=== PATIENT | female | born 1960 | race Caucasian/White ===

== ENCOUNTER → 2016-09-14 | Outpatient (CLI) | payer OTHER ==
[~2016-09-14] MED LIST: DILA2TAB2 PO; ESCI10TA PO; ESCI20TA PO; FAMC500T PO; MULT-120 PO; PANT40TA3 PO; SOMA350T PO; TRAZ100T4 PO
--- NOTE | 2016-09-14 10:47 | RADRPT ---
EXAM DATE/TIME: 09/14/2016 10:39 [facility] COMPARISON: CHEST PA & LAT, May 14, 2015, 11:52. INDICATIONS : Evaluate pneumonia, pneumothorax, or communicable disease. Pre op toe amputation. MEDICAL HISTORY : None. SURGICAL HISTORY : None. ENCOUNTER: Initial ACUITY: 1 day PAIN SCORE: 0/10 LOCATION: Bilateral chest FINDINGS: PA and lateral views of the chest demonstrate the lungs to be symmetrically aerated without evidence of mass, infiltrate or effusion. The cardiomediastinal contours are unremarkable. Osseous structure s are intact. CONCLUSION: Normal examination. Gene Brian MD on September 14, 2016 at 10:46 Board Certified Radiologist. This report was verified electronically.
[2016-09-14 10:51] LABS: BASOPHIL # 0.1 TH/MM3 (0-0.2); BASOPHIL % 1.1 % (0.0-2.0); EOSINOPHIL # 0.6 TH/MM3 (0-0.4); EOSINOPHIL % 9.2 % (0.0-4.0); HEMATOCRIT 32.7 % (35.0-46.0); HEMO FLAGS DIFF FINAL; LYMPH % 30.7 % (9.0-44.0); MEAN CELL VOLUME 94.9 FL (80.0-100.0); MEAN CORPUSCULAR HEMOGLOBIN 30.3 PG (27.0-34.0); MONO % 13.4 % (0.0-8.0); NEUT % 45.6 % (16.0-70.0); PLATELET COUNT 238 TH/MM3 (150-450); RED BLOOD COUNT 3.45 MIL/MM3 (4.00-5.30); RED CELL DISTRIBUTION WIDTH 14.4 % (11.6-17.2); WHITE BLOOD COUNT 6.5 TH/MM3 (4.0-11.0)
[2016-09-14 11:00] LABS: INTERNATIONAL NORMALIZED RATIO 0.9 RATIO; PROTHROMBIN TIME - PATIENT 9.8 SEC (9.8-11.6)
[2016-09-14 11:14] LABS: ALKALINE PHOSPHATASE 56 U/L (45-117); ALT (GPT) 23 U/L (10-53); ANION GAP 6 MEQ/L (5-15); AST (GOT) 19 U/L (15-37); BICARBONATE 31.3 MEQ/L (21.0-32.0); BLOOD UREA NITROGEN 16 MG/DL (7-18); CHLORIDE 103 MEQ/L (98-107); GLOMERULAR FILTRATION RATE 72 ML/MIN (>89); GLUCOSE,FASTING 149 MG/DL (74-99); POTASSIUM 4.7 MEQ/L (3.5-5.1); SODIUM (NA) 140 MEQ/L (136-145); TOTAL BILIRUBIN ADULT 0.2 MG/DL (0.2-1.0)
--- NOTE | 2016-09-14 14:12 | EKG ---
Date Performed: 09/14/2016 Time Performed: 10:13:00 PTAGE: 56 years EKG: Normal Sinus rhythm Since the prior tracing, the marked sinus bradycardia has resolved. BORDERLINE ECG PREVIOUS TRACING : 09/30/2015 11.53 DOCTOR: Angelique Tavera Interpretating Date/Time 09/14/2016 14:11:13
== END ==
LOC: CPRE 09:52
PROVIDERS: ATTEND Podiatrist Primary Podiatric Medicine
DX: Z01.810 Encounter for preprocedural cardiovascular examination (principal); Z01.811 Encounter for preprocedural respiratory examination; Z01.812 Encounter for preprocedural laboratory examination; M20.41 Other hammer toe(s) (acquired), right foot; R94.31 Abnormal electrocardiogram [ECG] [EKG]
CPT/HCPCS: 36415; 71020; 80053; 85025; 85610; 93005

== ENCOUNTER → 2016-09-18 | Day surgery (SDC) | payer OTHER ==
[~2016-09-18] VITALS: Ht 172.7 cm; Wt 74.4 kg
[~2016-09-18] MED LIST changes: +*HYDROmorphone PF 1 MG VIAL PERIprocedural Use ONLY ONE; +BUPIVACAINE HCL PF 0.5% 30 ML VIAL INFIL ONE; +BUPIVACAINE HCL PF 0.5% 30 ML VIAL ONE; +CHLORHEXIDINE GLUCONATE 2 % 1 PACK (2 CLOTHS) TOPICAL PRN; +DEXAMETHASONE SOD PHOS 4 MG/ML VIAL ONE; +DO NOT ADM ANY ANTICOAGULANT DRUGS PRN; -ESCI10TA PO; +FAMOTIDINE 20 MG/2 ML VIAL ONE; +HYDROmorphone HCL 2 MG TAB PO PRN; +HYDROmorphone HCL PF 1 MG/ML VIAL IV ONE; +INSULIN HUMAN REGULAR 1,000 UNITS/10 ML VIAL SQ PRN; +KETOROLAC TROMETHAMINE 60 MG/2 ML (IM) VIAL IM ONE; +LACTATED RINGER'S 1000 ML IV PRN; +LIDOCAINE HCL 1% 30 ML VIAL INFIL ONE; +METOPROLOL TARTRATE 25 MG TAB PO PRN; +MIDAZOLAM HCL 2 MG/2 ML VIAL ONE; +NALOXONE HCL 0.4 MG/ML AMP IV PRN; +ONDANSETRON HCL 4 MG/2 ML VIAL IV PUSH ONE; +POVIDONE IODINE 5% (ANTISEPSIS KIT) 4 APPLICATIONS EACH NARE PRN; +PROPOFOL 200 MG/20 ML AMP IV ONE; +Post-op Orders (for Pharmacy) MISC XX ONE; +SODIUM CHLORID 0.9% 500 ML IV PRN; +SODIUM CHLORIDE 0.9% FLUSH 10 ML FLUSH IV FLUSH PRN; +SODIUM CHLORIDE 0.9% FLUSH 10 ML FLUSH IV FLUSH SCH; +VANCOMYCIN HCL 1000 MG ON-CALL/NS 250 ML IV SCH
[2016-09-18 07:36] VITALS: BP 131/83; PULSE 68; RESP 18; TEMP 98.5; O2SAT 97
--- NOTE | 2016-09-18 09:55 | PD.OP ---
Operative Report Date of Surgery: Sep 18, 2016 Preoperative Diagnosis: (1) Hammertoe Second toe right foot Postoperative Diagnosis: (1) Hammertoe Second toe right foot Procedure: Amputation of the second toe right foot at the [facility] Anesthesia: General anesthesia Surgeon: Nestor Smith DPM Senior Bioinformatics Scientist(s): None Operation and Findings: Patient is brought to the operating room placed on the operating table in a supine position. A pneumatic ankle cuff was placed around the patient's right ankle after adequate web roll padding. She was given general inhalation anesthesia. The right foot was prepped and draped in the usual sterile manner. The right foot was elevated above the operating table for a period 3 minutes. After the appropriate timeout was performed the pneumatic ankle cuff was inflated to 250 mmHg. The right foot was lowered to the operating table and attention was directed to the second toe the right foot. Should be noted that the patient has severe hammertoe deformity secondary to hallux abductovalgus. Patient's bunion was not painful and she wished amputation of the second toe in lieu of multiple surgical corrective procedures. At this time a fishmouth incision was made at the base of the second toe from dorsally to plantarly. The incision was deepened using sharp and blunt dissection. The incision was deepened to the level of the metatarsal phalangeal joint where the second toe was disarticulated. There is flushed with copious amounts of sterile saline. Subcutaneous tissue was closed with 3-0 Vicryl. Skin edges were closed with 4- 0 Prolene. Sponge and instrument counts were correct. The incision was dressed with Adaptic, 4 x 4's and Anthony. The pneumatic ankle cuff was deflated at the 21 minute jereym. Vascular status returned to the remaining digits of the right foot. Estimated blood loss was less than 10 cc. Second toe was sent to pathology. Patient tolerated procedures and anesthesia well and left the OR to PACU in apparent satisfactory condition with all vital signs stable Nestor Smith DPM Sep 18, 2016 09:55
[2016-09-18 11:15] VITALS: BP 119/70; PULSE 74; RESP 18; TEMP 97.5; O2SAT 96
== END | disposition home or self-care (01) ==
LOC: HSDC 06:58
PROVIDERS: ATTEND Podiatrist Primary Podiatric Medicine
DX: M20.41 Other hammer toe(s) (acquired), right foot (principal)
CPT/HCPCS: 01480; 28820; 88305; 88311; J1100; J1170; J1885; J2250; J2405; J3010; J3370; J7050; J7120; L3260

== ENCOUNTER → 2016-12-14 | Outpatient (CLI) | payer OTHER ==
[~2016-12-14] MED LIST changes: -*HYDROmorphone PF 1 MG VIAL PERIprocedural Use ONLY ONE; -BUPIVACAINE HCL PF 0.5% 30 ML VIAL INFIL ONE; -BUPIVACAINE HCL PF 0.5% 30 ML VIAL ONE; -CHLORHEXIDINE GLUCONATE 2 % 1 PACK (2 CLOTHS) TOPICAL PRN; -DEXAMETHASONE SOD PHOS 4 MG/ML VIAL ONE; -DO NOT ADM ANY ANTICOAGULANT DRUGS PRN; -FAMOTIDINE 20 MG/2 ML VIAL ONE; -HYDROmorphone HCL 2 MG TAB PO PRN; -HYDROmorphone HCL PF 1 MG/ML VIAL IV ONE; -INSULIN HUMAN REGULAR 1,000 UNITS/10 ML VIAL SQ PRN; -KETOROLAC TROMETHAMINE 60 MG/2 ML (IM) VIAL IM ONE; -LACTATED RINGER'S 1000 ML IV PRN; -LIDOCAINE HCL 1% 30 ML VIAL INFIL ONE; -METOPROLOL TARTRATE 25 MG TAB PO PRN; -MIDAZOLAM HCL 2 MG/2 ML VIAL ONE; +MULT-65 PO; -NALOXONE HCL 0.4 MG/ML AMP IV PRN; -ONDANSETRON HCL 4 MG/2 ML VIAL IV PUSH ONE; -POVIDONE IODINE 5% (ANTISEPSIS KIT) 4 APPLICATIONS EACH NARE PRN; -PROPOFOL 200 MG/20 ML AMP IV ONE; -Post-op Orders (for Pharmacy) MISC XX ONE; -SODIUM CHLORID 0.9% 500 ML IV PRN; -SODIUM CHLORIDE 0.9% FLUSH 10 ML FLUSH IV FLUSH PRN; -SODIUM CHLORIDE 0.9% FLUSH 10 ML FLUSH IV FLUSH SCH; +TRAM50TA PO; +TRAZ100T6 PO; -VANCOMYCIN HCL 1000 MG ON-CALL/NS 250 ML IV SCH
[2016-12-14 11:22] LABS: HEMATOCRIT 36.6 % (35.0-46.0); MEAN CELL VOLUME 93.5 FL (80.0-100.0); MEAN CORPUSCULAR HEMOGLOBIN 30.7 PG (27.0-34.0); MEAN CORPUSCULAR HGB CONC 32.8 % (32.0-36.0); PLATELET COUNT 232 TH/MM3 (150-450); RED BLOOD COUNT 3.91 MIL/MM3 (4.00-5.30); RED CELL DISTRIBUTION WIDTH 13.8 % (11.6-17.2); REVIEW FLAG FINAL; WHITE BLOOD COUNT 7.2 TH/MM3 (4.0-11.0)
[2016-12-14 11:28] LABS: INTERNATIONAL NORMALIZED RATIO 0.9 RATIO; PROTHROMBIN TIME - PATIENT 9.9 SEC (9.8-11.6)
[2016-12-14 11:41] LABS: ANION GAP 7 MEQ/L (5-15); AST (GOT) 20 U/L (15-37); BICARBONATE 29.1 MEQ/L (21.0-32.0); BLOOD UREA NITROGEN 13 MG/DL (7-18); CHLORIDE 103 MEQ/L (98-107); GLOMERULAR FILTRATION RATE 75 ML/MIN (>89); GLUCOSE,FASTING 143 MG/DL (74-99); POTASSIUM 4.1 MEQ/L (3.5-5.1); SODIUM (NA) 139 MEQ/L (136-145)
[2016-12-14 11:43] LABS: ALT (GPT) 21 U/L (10-53)
[2016-12-14 11:44] LABS: ALKALINE PHOSPHATASE 65 U/L (45-117); TOTAL BILIRUBIN ADULT 0.3 MG/DL (0.2-1.0)
--- NOTE | 2016-12-14 12:25 | RADRPT ---
EXAM DATE/TIME: 12/14/2016 11:29 [facility] COMPARISON: CHEST PA & LAT, September 14, 2016, 10:39. INDICATIONS : Evaluate for pneumonia, pneumothorax, and communicable disease. Pre-op for left foot surgery. MEDICAL HISTORY : None. SURGICAL HISTORY : None. ENCOUNTER: Initial ACUITY: 1 day PAIN SCORE: 0/10 LOCATION: chest FINDINGS: The cardiac and mediastinal contours are within normal limits. The lungs demonstrate some mild chroni c interstitial changes but are clear. There is rotatory scoliosis of the thoracic spine. CONCLUSION: 1. No acute cardiopulmonary findings identified. 2. Stable compared to prior dated 09/14/16. Scar Delong MD on December 14, 2016 at 12:23 Board Certified Radiologist. This report was verified electronically.
== END ==
LOC: CPRE 10:41
PROVIDERS: ATTEND Podiatrist Primary Podiatric Medicine
DX: Z01.811 Encounter for preprocedural respiratory examination (principal); Z01.812 Encounter for preprocedural laboratory examination; M20.42 Other hammer toe(s) (acquired), left foot
CPT/HCPCS: 36415; 71020; 80053; 85027; 85610

== ENCOUNTER → 2016-12-18 | Day surgery (SDC) | payer OTHER ==
[~2016-12-18] VITALS: Ht 172.7 cm; Wt 73.8 kg
[~2016-12-18] MED LIST changes: +*HYDROmorphone PF 1 MG VIAL PERIprocedural Use ONLY ONE; +ACETAMINOPHEN 1000 MG/100 ML VIAL IV ONE; +BUPIVACAINE HCL PF 0.5% 30 ML VIAL ONE; +CHLORHEXIDINE GLUCONATE 2 % 1 PACK (2 CLOTHS) TOPICAL PRN; +DEXAMETHASONE SOD PHOS 4 MG/ML VIAL ONE; +DICLOFENAC SODIUM 37.5 MG/ML VIAL IV PUSH ONE; +DO NOT ADM ANY ANTICOAGULANT DRUGS PRN; +FAMOTIDINE 20 MG/2 ML VIAL ONE; +HYDROmorphone HCL PF 1 MG/ML VIAL IV PRN; +IBUPROFEN 400 MG TAB PO PRN; +INSULIN HUMAN REGULAR 1,000 UNITS/10 ML VIAL SQ PRN; +LACTATED RINGER'S 1000 ML IV PRN; +METOPROLOL TARTRATE 25 MG TAB PO PRN; +MIDAZOLAM HCL 2 MG/2 ML VIAL ONE; -MULT-120 PO; +NALOXONE HCL 0.4 MG/ML AMP IV PRN; +ONDANSETRON HCL 4 MG/2 ML VIAL IV PUSH ONE; +PHENYLEPH/NS 1000 MCG/10 ML SYR IV ONE; +POVIDONE IODINE 5% (ANTISEPSIS KIT) 4 APPLICATIONS EACH NARE PRN; +PROPOFOL 200 MG/20 ML AMP IV ONE; +Post-op Orders (for Pharmacy) MISC XX ONE; +SODIUM CHLORID 0.9% 500 ML IV PRN; +SODIUM CHLORIDE 0.9% FLUSH 10 ML FLUSH IV FLUSH PRN; +SODIUM CHLORIDE 0.9% FLUSH 10 ML FLUSH IV FLUSH SCH; -SOMA350T PO; -TRAZ100T4 PO; +VANCOMYCIN 1 GM IV ONE; +VANCOMYCIN HCL 1000 MG ON-CALL/NS 250 ML IV SCH; +ePHEDrine/NS 25 MG/5 ML SYR IV ONE; +traMADol HCL 50 MG TAB PO PRN
[2016-12-18 09:27] VITALS: BP 105/71; PULSE 71; RESP 20; TEMP 98.3; O2SAT 97
--- NOTE | 2016-12-18 09:44 | PD.OP ---
Operative Report Date of Surgery: Dec 18, 2016 Preoperative Diagnosis: (1) Hammertoe Fifth toe left foot Postoperative Diagnosis: (1) Hammertoe Fifth toe left foot Procedure: Derotational arthroplasty fifth toe left foot Anesthesia: General inhalation Surgeon: Nestor Smith DPM Motor Inspection Mechanic(s): None Operation and Findings: Patient is brought to the operating room placed on the operating table in the supine position. Patient was given general inhalation anesthesia and the left foot was prepped and draped in the usual sterile manner. After the appropriate timeout was performed attention was directed to the fifth toe of the left foot. He was noted that the fifth toe is varus rotated and is sitting under the fourth toe. At this time using a 15 blade a teardrop type incision was centered over the proximal interphalangeal joint removing a small wedge of skin. Incision was deepened using sharp and blunt dissection and the head of the proximal phalanx was delivered into the wound. Utilizing a bone cutting forceps the head of the proximal phalanx was resected. The incision site was closed and he should be noted that the fifth toe is now the rotated and is no longer sitting under the fourth toe. The area was flushed with copious amounts of sterile saline. Skin edges were reapproximated and closed using 4-0 Prolene. Excellent anatomical alignment of the fifth toe was noted. The toe was anesthetized with 7 cc of 0.5% Marcaine plain. The incision was dressed with Adaptic 4 x 4's and Anthony and an Tank bandage. Estimated blood loss was less than 10 cc. No pathology specimen was sent. Sponge and instrument count were noted to be correct. Patient tolerated the procedures and anesthesia well and left the OR to PACU in apparent satisfactory condition with all vital signs stable endovascular status intact to all digits of the left foot. Nestor Smith DPM Dec 18, 2016 09:44
--- NOTE | 2016-12-18 11:27 | PD.OP ---
Operative Report Date of Surgery: Dec 18, 2016 Preoperative Diagnosis: (1) Hammertoe Second and third toes left foot Postoperative Diagnosis: (1) Hammertoe Second and third toes left foot Procedure: Arthrodesis second and third toes left foot Anesthesia: Gen. anesthesia Surgeon: Nestor Smith DPM Director Of [facility](s): NIVIA Operation and Findings: Patient is brought to the OR and placed on the operating table in a supine position. Pneumatic ankle cuff was placed around the patient's left ankle after adequate web roll padding. Patient was given general relation anesthesia. The left foot was prepped and draped in the usual sterile manner. After the appropriate timeout was performed the left foot was elevated above the operating table for a period of 3 minutes at which time the pneumatic ankle cuff was inflated to 250 mmHg. Total cuff time was 52 minutes. The left foot was lowered to the operating table and reduction of the patient has hammertoe deformity of the second and third toes of the left foot. At this time attention was directed to the second toe where linear incision was made centered over the proximal interphalangeal joint. Incision was deepened using sharp and blunt dissection to the level of the proximal interphalangeal joint. Transverse tenotomy was performed. The head of the proximal phalanx and the base of the intermediate phalanx was resected. Should be noted that when the toe is dorsiflexed and now set a more correct anatomical position. At this time a 0.45 K wire was driven from the intermediate phalanx distally through the end of the toe and retrograded into the proximal phalanx to hold this toe in a straight position. The K wire was cut and capped. Subcutaneous tissue is closed with 3-0 Vicryl and skin was reapproximated and closed with 4-0 Prolene. She really of the toe now sat in a more correct anatomical position. Attention was directed to the third toe of the left foot where the exact same procedures performed on the second toe was performed on the third toe at the same good results obtained. At this time both toes were anesthetized using a total of 10 cc of 0.5% Marcaine plain. Incisions were dressed with Adaptic 4 x 4's and Anthony and the pneumatic ankle cuff was deflated. The vascular status returned to the digits. Blood loss was less than 10 cc. No specimen was sent. I will sponge and instrument count was noted to be correct. Patient tolerated procedures and anesthesia well and left the OR to PACU in apparent satisfactory condition without blood or signs stable endovascular status intact to the left foot. Nestor Smith DPM Dec 18, 2016 11:26
--- NOTE | 2016-12-18 12:48 | RADRPT ---
EXAM DATE/TIME: 12/18/2016 11:53 [facility] COMPARISON: FOOT LEFT COMPLETE ([id number]), May 17, 2015, 14:29. INDICATIONS : Post hammer toe repair, pins, left foot. MEDICAL HISTORY : Rheumatoid arthritis. SURGICAL HISTORY : 3 prior hammer toe repairs. ENCOUNTER: Initial ACUITY: 1 day PAIN SCORE: 8/10 LOCATION: Left foot. FINDINGS: Surgical pin traverses the second phalanx and the proximal phalanx of the second digit has resorbed s minerva the prior examination and the surgical pin lies in the soft tissues between the first and second digits proximally. There is a surgical pin traversing the third distal phalanx with gross anatomical alignment and screws involving the first metatarsal bone have not changed. Post surgical changes inv olving the first metatarsophalangeal joint is seen with superimposed degenerative change. CONCLUSION: Resorption of second proximal phalanx since the prior examination and migration of the proximal porti on of the second surgical pin which lies between the first and second digit interdigital soft tissue. Christen Corea MD on December 18, 2016 at 12:43 Board Certified Radiologist. This report was verified electronically.
[2016-12-18 12:50] VITALS: BP 132/84; PULSE 81; RESP 18; TEMP 97; O2SAT 95
== END | disposition home or self-care (01) ==
LOC: HSDC 08:52
PROVIDERS: ATTEND Podiatrist Primary Podiatric Medicine
DX: M20.42 Other hammer toe(s) (acquired), left foot (principal); M06.9 Rheumatoid arthritis, unspecified
CPT/HCPCS: 01480; 28285; 73630; 76000; J0131; J1100; J1130; J1170; J2250; J2370; J2405; J3010; J3370; J7050; L3260

== ENCOUNTER → 2017-03-30 | Outpatient (CLI) | payer OTHER ==
[~2017-03-30] MED LIST changes: -*HYDROmorphone PF 1 MG VIAL PERIprocedural Use ONLY ONE; -ACETAMINOPHEN 1000 MG/100 ML VIAL IV ONE; +ASPI1TAB56 PO; -BUPIVACAINE HCL PF 0.5% 30 ML VIAL ONE; +CELE50CA PO; -CHLORHEXIDINE GLUCONATE 2 % 1 PACK (2 CLOTHS) TOPICAL PRN; -DEXAMETHASONE SOD PHOS 4 MG/ML VIAL ONE; -DICLOFENAC SODIUM 37.5 MG/ML VIAL IV PUSH ONE; -DILA2TAB2 PO; -DO NOT ADM ANY ANTICOAGULANT DRUGS PRN; +DOCU1CAP39 PO; -FAMOTIDINE 20 MG/2 ML VIAL ONE; +FERR325T20 PO; -HYDROmorphone HCL PF 1 MG/ML VIAL IV PRN; -IBUPROFEN 400 MG TAB PO PRN; -INSULIN HUMAN REGULAR 1,000 UNITS/10 ML VIAL SQ PRN; -LACTATED RINGER'S 1000 ML IV PRN; -METOPROLOL TARTRATE 25 MG TAB PO PRN; -MIDAZOLAM HCL 2 MG/2 ML VIAL ONE; -NALOXONE HCL 0.4 MG/ML AMP IV PRN; -ONDANSETRON HCL 4 MG/2 ML VIAL IV PUSH ONE; +OXYC1TAB63 PO; -PHENYLEPH/NS 1000 MCG/10 ML SYR IV ONE; -POVIDONE IODINE 5% (ANTISEPSIS KIT) 4 APPLICATIONS EACH NARE PRN; -PROPOFOL 200 MG/20 ML AMP IV ONE; -Post-op Orders (for Pharmacy) MISC XX ONE; -SODIUM CHLORID 0.9% 500 ML IV PRN; -SODIUM CHLORIDE 0.9% FLUSH 10 ML FLUSH IV FLUSH PRN; -SODIUM CHLORIDE 0.9% FLUSH 10 ML FLUSH IV FLUSH SCH; -TRAM50TA PO; +TRAZ100T10 PO; -TRAZ100T6 PO; -VANCOMYCIN 1 GM IV ONE; -VANCOMYCIN HCL 1000 MG ON-CALL/NS 250 ML IV SCH; +VENTAER INH; -ePHEDrine/NS 25 MG/5 ML SYR IV ONE; -traMADol HCL 50 MG TAB PO PRN
[2017-03-30 09:12] LABS: APTT (PATIENT) 23.7 SEC (24.3-30.1); INTERNATIONAL NORMALIZED RATIO 0.9 RATIO
[2017-03-30 10:15] LABS: POTASSIUM 4.5 MEQ/L (3.5-5.1)
== END ==
LOC: CPRE 08:12
PROVIDERS: ATTEND Orthopaedic Surgery
DX: Z01.812 Encounter for preprocedural laboratory examination (principal)
CPT/HCPCS: 36415; 80048; 85610; 85730

== ENCOUNTER 2017-04-05 08:01 | Inpatient (IN) | payer OTHER ==
[~2017-04-05] VITALS: Ht 174 cm; Wt 78.1 kg
[~2017-04-05 08:01] MED LIST changes: -ASPI1TAB56 PO; -DOCU1CAP39 PO; -FERR325T20 PO; -OXYC1TAB63 PO; -TRAZ100T10 PO; +TRAZ100T6 PO
[2017-04-05] MEDS ORDERED: INSULIN HUMAN REGULAR 1,000 UNITS/10 ML VIAL SQ PRN (09:00)
[2017-04-05] MEDS ORDERED: CHLORHEXIDINE GLUCONATE 2 % 1 PACK (2 CLOTHS) TOPICAL PRN (09:00)
[2017-04-05] MEDS ORDERED: POVIDONE IODINE 5% (ANTISEPSIS KIT) 4 APPLICATIONS EACH NARE PRN (09:00)
[2017-04-05] MEDS ORDERED: SODIUM CHLORID 0.9% 500 ML IV PRN (09:00)
[2017-04-05] MEDS ORDERED: METOPROLOL TARTRATE 25 MG TAB PO PRN (09:00)
[2017-04-05] MEDS ORDERED: LACTATED RINGER'S 1000 ML IV PRN (09:00)
[2017-04-05] MEDS ORDERED: GENTAMICIN SULFATE 80 MG/2 ML VIAL ONE (09:05)
[2017-04-05] MEDS ORDERED: Post-op Orders (for Pharmacy) MISC XX ONE (09:30)
[2017-04-05] MEDS ORDERED: ALBUTEROL SULFATE 90 MCG/ACT HFA 8 GM INHALER INH PRN (09:30)
[2017-04-05] MEDS ORDERED: SODIUM CHLORIDE 0.9% FLUSH 5 ML FLUSH IVF PRN (09:30)
[2017-04-05] MEDS ORDERED: TRANEXAMIC ACID INJ 0 MG in SODIUM CHLORIDE 0.9% INJ 100 ML IV SCH (09:30)
[2017-04-05] MEDS ORDERED: FAMOTIDINE 20 MG/2 ML VIAL ONE (09:42)
[2017-04-05] MEDS ORDERED: ACETAMINOPHEN 1000 MG/100 ML 100 ML IV ONE (09:43)
[2017-04-05] MEDS ORDERED: traMADol HCL 50 MG TAB PO PRN (09:45)
[2017-04-05] MEDS ORDERED: ZOLPIDEM TARTRATE 5 MG TAB PO PRN (10:00)
[2017-04-05] MEDS ORDERED: CLINDAMYCIN PHOS 600 MG/4 ML VIAL ONE (10:07)
[2017-04-05] MEDS ORDERED: CLINDAMYCIN PHOS 900 MG/6 ML VIAL ONE (10:10)
[2017-04-05] MEDS ORDERED: BUPIVACAINE HCL PF 0.5% 30 ML VIAL ONE (10:15)
[2017-04-05] MEDS ORDERED: CHLORHEXIDINE GLUCONATE 4% SOLN 120 ML BTL TOPICAL SCH (10:30)
[2017-04-05] MEDS ORDERED: TRANEXAMIC ACID INJ 781 MG in SODIUM CHLORIDE 0.9% INJ 100 ML IV SCH ×2 (10:30→13:30)
[2017-04-05] MEDS ORDERED: MAGNESIUM HYDROXIDE SUSP 30 ML CUP PO PRN (10:30)
[2017-04-05] MEDS ORDERED: EXPAREL PERI-ARTICULAR INJECTION (TOTAL VOL. 100 ML) P-ARTICULR SCH ×2 (10:30)
[2017-04-05] MEDS ORDERED: PROPOFOL 200 MG/20 ML AMP ONE (10:33)
[2017-04-05] MEDS ORDERED: ONDANSETRON HCL 4 MG/2 ML VIAL IVP PRN (10:45)
[2017-04-05] MEDS ORDERED: PROPOFOL 500 MG/50 ML INJ 50 ML ONE (11:28)
--- NOTE | 2017-04-05 12:21 | HHI.PR ---
Immediate Post Op Note Procedure Date: Apr 05, 2017 Pre Op Diagnosis: (1) Primary osteoarthritis of right knee Post Op Diagnosis: (1) Primary osteoarthritis of right knee Surgeon: Matias Sultana MD Statistical Modeler(s): SARA Villalba Procedure: Right total knee arthroplasty with Edouard Triathlon prosthesis (uncemented) Findings: OA right knee Complications: none Specimen(s) removed: none Estimated blood loss: 150 ml Anesthesia: Regional Block (adductor canal block), Spinal, Local (Exparel) Drains: Hemovac (2) IVF Patient to: PACU Patient Condition: Good Implant/Devices: SEE IMPLANT LOG (if applicable) Date/Time of Procedure: SEE SURGICAL CARE RECORD Claudia Sultana MD (Charles) Apr 05, 2017 12:21
--- NOTE | 2017-04-05 12:43 | HHI.FF ---
Face to Face Verification Diagnosis: (1) Status post total right knee replacement Physical Therapy Gait training Knee: Total knee, Protocol: Right, Gait training, Full weight bearing Right LE Weight Bearing: WB as tolerated Right LE Range of Motion: Active ROM (AROM, AAROM, PROM. ROM goal is 0 to 135 degrees. ROM in the OR was 0 to 150 degrees.) Nursing Nursing: Dressing changes Dressing Changes: Daily dressing change, Coverderm/Primapore Additional Instructions Remove steristrips on postop day 14. Dressing changes to begin postop day 7. I have seen patient Cheri Drake on 04/05/17. My clinical findings support the need for the requested home health care services because: Ltd mobility - disease progression Limited ability to care for self High risk of falls I certify that my clinical findings support that this patient is homebound because: Post-op weakness Unsteady gait/balance Unsafe to leave home unassisted Claudia Sultana MD ([facility]) Apr 05, 2017 12:43
[2017-04-05] MEDS ORDERED: ASPI-99 PO (12:44)
[2017-04-05] MEDS ORDERED: *HYDROmorphone PF 1 MG VIAL PERIprocedural Use ONLY ONE ×4 (12:52→13:44)
[2017-04-05] MEDS: KETOROLAC TROMETHAMINE 30 MG/ML (IVP) VIAL IVP SCH ×3 (13:00→23:53)
[2017-04-05] MEDS ORDERED: *MEPERIDINE 25 MG INJ VIAL PERIprocedural Use ONLY ONE (13:02)
--- NOTE | 2017-04-05 13:13 | MP ---
cc: Melita CORBIN. DATE OF SURGERY 04/05/2017 PREOPERATIVE DIAGNOSIS Primary osteoarthritis right knee. POSTOPERATIVE DIAGNOSIS Primary osteoarthritis right knee. OPERATION PERFORMED Right total knee arthroplasty with [employer] Triathlon prosthesis (uncemented). SURGEON Claudia Corbin MD ANESTHESIA Spinal with supplemental adductor canal block and local with Exparel. INDICATIONS AND FINDINGS This 57-year-old woman has had three years of progressively worsening knee pain such that she is now able to ambulate without support for about 5 feet before having to stop. She has difficulty ascending and descending stairs, difficulty standing from a seated position, pain on walking, giving-way, swelling and pain with motion. She has been treated with analgesics, nonsteroidal antiinflammatory agents, activity modification, exercises, intraarticular corticosteroids and ambulatory aids without benefit. Physical findings shows genu varum with tenderness on motion and crepitation on motion. There are some palpable medial osteophytes. Radiographic findings showed significant arthritis in the knee with loss of articular cartilage to huio-yn-erld in the medial compartment with patellofemoral compartment showing changes as well with eburnation, osteophytes and effusion. Operative findings were consistent with the radiographic findings with there being loss of articular cartilage, eburnation, osteophytes and an effusion. PROSTHESIS USED Edouard Triathlon prosthesis with the femur being a size 4 right cruciate-retaining uncemented, the tibia being a size 4 titanium baseplate with a 9-mm cruciate-retaining spacer of X3 polyethylene and the patella being a tritanium-backed, asymmetric size 32 patella. These were all uncemented. PROCEDURE The patient was brought to the operating room and a spinal and regional anesthetic were administered. She was then placed in a supine position on the operating table with a bolster under the left hip and a pneumatic tourniquet being placed about the right thigh. The right knee was then prepped with alcohol, Hibiclens and Chloraprep and draped in the usual manner with the knee draped free. An appropriate time-out procedure was carried out. Local anesthesia was administered into the incision site prior to making the incision. An anterior incision was then made from about three fingerbreadths above the superior medial pole of the patella down to the tibial tubercle on the medial side. The incision was deepened through the subcutaneous tissues to the retinacular structures which were exposed medially and laterally. A medial retinacular incision was made from the superior medial pole of the patella, down to the tibial tubercle and up into the quadriceps tendon, splitting it longitudinally in the medial one-third. The patella was reflected. The infrapatellar fat pad was debulked. Medial and lateral dissection was carried out. The posterior surface of the patella was excised with an oscillating saw taking care to prevent injury to ligamentous and tendinous structures. Fenestration was were made in the distal femur and proximal tibia for intramedullary referencing guides. The distal femoral cutting guide and jig were assembled for 5-degree, 8-mm cut and positioned in place. The cutting block was stabilized with pins. The jig was removed. The distal femoral cut was completed with the oscillating saw. The sizing guide was positioned in place and stabilized with pins using Whitesides line and the epicondylar axis. The size was determined as noted above. After removing the sizing guide, the four-in-one cutting block was positioned in place and stabilized with pins. Anterior and posterior cuts were made followed by posterior and anterior chamfer cuts. Osteophytes were then trimmed. Medial lateral meniscectomies were completed. The intramedullary guide for the proximal tibial cutting guide was chosen. This was positioned in place and stabilized for rotation. The cutting guide itself was then adjusted according to the lateral joint line. This was to see this was adjusted according to the spacer block and pinned in place. The jig was removed. The proximal tibial cut was completed with the oscillating saw taking care to prevent injury to ligamentous and neurovascular structures. After this the spacer block was used to verify the appropriate cut. The tibial baseplate trial was then positioned in place with a 9-mm spacer. The femoral trial was impacted into place and seated appropriately. The patella drill guide was positioned and drill holes made. A trial prosthesis was applied here as well. With the tibia pinned for appropriate rotation, the knee was taken through a range of motion which was easily 0 degrees extension and 150 degrees of flexion with excellent stability and appropriate tracking. The patella trial was removed. The femoral drill holes were made followed by removal of the femoral trial. The tibial spacer was removed. The tibial punch was impacted through its guide after placement of bone graft into the end of the femur and proximal tibia to close the fenestrations made earlier. The tibial punch was impacted through its guide and then removed. The tibial drill guide was positioned in place and drill holes made. The trial prosthesis were completely removed. The cut ends of bone were then cleaned with pulse lavage. Local anesthesia was administered throughout the knee with Exparel. The tibial component was impacted into place and seated appropriately. The tibial spacer was then inserted and seated appropriately. The femoral component was then impacted into place and seated appropriately. The patella was seated with the patella vice. The knee was taken through a range of motion which was easily 0 to 150 degrees. The remainder of the knee was injected with the remainder of the Exparel. Drains were brought out the superolateral aspect of the suprapatellar pouch. Wound closure then commenced using 0 Vicryl interrupted [id number] sutures for the capsular structures and fascial structures, 2-0 Vicryl interrupted simple sutures with buried knots for the subcutaneous tissues and continuous subcuticular closure of 4-0 Monocryl for the skin. The wound was dressed with Steri-Strips, followed by dry dressing, silver impregnated dressing, Sof-Rol, cooling pad, further sterile Sof-Rol and Tank bandage from the base of the toes to midthigh. The patient was then transferred from the operating room to the recovery room in satisfactory condition having tolerated the procedure well. COUNTS Correct. SPECIMENS None. ESTIMATED BLOOD LOSS 150 mL. MD TEOFILO Ernandez/MELVI /12:23 PM /12:57 PM
--- NOTE | 2017-04-05 13:30 | RADRPT ---
EXAM DATE/TIME: 04/05/2017 13:01 [facility] COMPARISON: No previous studies available for comparison. INDICATIONS : Post of right knee surgery MEDICAL HISTORY : None. SURGICAL HISTORY : None. ENCOUNTER: Initial ACUITY: 1 day PAIN SCORE: 8/10 LOCATION: Right knee FINDINGS: AP and lateral views of the knee following arthroplasty reveals a prosthesis in anatomic alignment. F racture is not appreciated. Surgical drain is evident CONCLUSION: Status post total knee arthroplasty. Lei Delong MD FACR Board Certified Radiologist. This report was verified electronically.
[2017-04-05] MEDS: LACTATED RINGER'S 1000 ML INJ 1,000 ML IV SCH ×2 (13:40→23:15)
[2017-04-05] MEDS: HYDROmorphone HCL PF 2 MG/ML VIAL IV PUSH PRN (14:13)
[2017-04-05 14:15] VITALS: BP 100/71; PULSE 73; RESP 18; TEMP 96.2; O2SAT 93
--- NOTE | 2017-04-05 14:40 | PD.CONS ---
HPI Service [facility] Consult Requested By Dr. Estefania Sultana Reason for Consult Medical management Primary Care Physician Ted Chadwick M.D. Diagnoses: History of Present Illness This is a 57-year-old female with history of progressive right knee pain affecting her activities of daily living secondary to osteoarthritis. She underwent elective total knee arthroplasty by Dr. Sultana who requested consultation to evaluate and manage multiple medical conditions. Anesthesia records reviewed she was hemodynamically stable. Received 1200 mL crystalloid and EBL of 150s mL. Patient has had pneumonia and bronchitis and was on albuterol inhaler. She has been doing well respiratory chase and last chest x- ray in December 2016 was unremarkable. She also has duodenitis on Protonix and denies GI symptoms. She also has genital herpes controlled on famvir, arthritis and chronic back pain managed by Celebrex and anxiety and depression stable on Lexapro and trazodone. At this time, complains of minimal right knee pain. All other systems reviewed negative Review of Systems Except as stated in HPI: all other systems reviewed are Neg Past Family Social History Allergies: Coded Allergies: codeine (Verified Allergy, Severe, Hives, 04/05/17) levofloxacin (Verified Allergy, Severe, Anaphylaxis, 04/05/17) morphine (Verified Allergy, Mild, Hives, 04/05/17) Sulfa (Sulfonamide Antibiotics) (Verified Allergy, Unknown, Anaphylaxis, 04/05/17) penicillin G (Verified Allergy, Unknown, Anaphylaxis, 04/05/17) Past Medical History As previously mentioned Past Surgical History Tonsillectomy, lumpectomy, breast implants, colon surgery, foot surgery Reported Medications Celebrex (Celecoxib) 50 Mg Cap 50 Mg PO BID Ventolin Hfa 18 GM Inh (Albuterol Sulfate) 90 Mcg/Act Aer 2 Puff INH Q4-6H PRN Multi-Vitamin Daily (Multiple Vitamin) 1 Tab Tab 1 Tab PO DAILY Trazodone (Trazodone HCl) 100 Mg Tablet 100 Mg PO HS Famciclovir 500 Mg Tab 500 Mg PO BID Escitalopram (Escitalopram Oxalate) 20 Mg Tab 20 Mg PO DAILY Pantoprazole (Pantoprazole Sodium) 40 Mg Tab 40 Mg PO DAILY Family History COPD, diabetes and breast cancer Social History Occasional alcohol use. Does not smoke Physical Exam Vital Signs Vital Signs Date Time Temp Pulse Resp B/P (MAP) Pulse Ox O2 Delivery O2 Flow Rate FiO2 04/05/17 08:50 97.8 70 16 121/84 (96) 100 Physical Exam GENERAL: This is a well-nourished, well-developed patient, in no apparent distress. SKIN: No rashes, ecchymoses or lesions. Cool and dry. HEAD: Atraumatic. Normocephalic. No temporal or scalp tenderness. EYES: Pupils equal round and reactive. Extraocular motions intact. No scleral icterus. No injection or drainage. ENT: Nose without bleeding, purulent drainage or septal hematoma. Throat without erythema, tonsillar hypertrophy or exudate. Uvula midline. Airway patent. NECK: Trachea midline. No JVD or lymphadenopathy. Supple, nontender, no meningeal signs. CARDIOVASCULAR: Regular rate and rhythm without murmurs, gallops, or rubs. RESPIRATORY: Clear to auscultation. Breath sounds equal bilaterally. No wheezes , rales, or rhonchi. GASTROINTESTINAL: Abdomen soft, non-tender, nondistended. No guarding. MUSCULOSKELETAL: Extremities without clubbing, cyanosis, or edema. Right lower extremity with thick dry dressing on a CPM NEUROLOGICAL: Awake and alert. Cranial nerves II through XII intact. Motor and sensory grossly within normal limits. Five out of 5 muscle strength in all muscle groups. Normal speech. Laboratory Preop eval reviewed EKG tracing interpreted by me with sinus rhythm status changes CBC remarkable for white count of 4.9 hemoglobin 13.4 platelet count of 320, INR 0.9, BMP unremarkable except for glucose 120 and urinalysis unremarkable Assessment and Plan Assessment and Plan This is a 57-year-old female with history of progressive right knee pain affecting her activities of daily living secondary to osteoarthritis. She underwent elective total knee arthroplasty by Dr. Sultana who requested consultation to evaluate and manage multiple medical conditions. Total knee arthroplasty. Stable continue postoperative care with wound care, physical therapy, DVT prophylaxis with aspirin and pain management with ibuprofen, tramadol, Lortab and IV Dilaudid. She will also be on scheduled IV Toradol. Patient has had pneumonia and bronchitis and was on albuterol inhaler. She has been doing well respiratory chase and last chest x-ray in December 2016 was unremarkable. Tolerating room air. She also has duodenitis on Protonix and denies GI symptoms. Continue PPI She also has genital herpes controlled on famvir, we'll continue Arthritis and chronic back pain managed by Celebrex, also continued Anxiety and depression stable on Lexapro and trazodone. Discussed Condition With Patient Barry Ortiz MD Apr 05, 2017 14:40
[2017-04-05] MEDS: diphenhydrAMINE HCL 25 MG CAP PO PRN (15:58)
[2017-04-05] MEDS: HYDROmorphone HCL 2 MG TAB PO PRN ×2 (15:59→20:30)
[2017-04-05 16:00] VITALS: BP 85/52; PULSE 88; RESP 19; TEMP 96.6; O2SAT 98
[2017-04-05 17:26] VITALS: O2SAT 100
[2017-04-05] MEDS: CLINDAMYCIN INJ 900 MG in SODIUM CHLORIDE 0.9% INJ 100 ML IV SCH (17:36)
[2017-04-05] MEDS: traZODone HCL 100 MG TAB PO SCH (20:30)
[2017-04-05] MEDS: SODIUM CHLORIDE 0.9% FLUSH 5 ML FLUSH IVF SCH (20:31)
[2017-04-05] MEDS: FAMCICLOVIR 500 MG TAB PO SCH (20:34)
[2017-04-05 20:40] VITALS: BP 90/53; PULSE 100; RESP 18; TEMP 96.4; O2SAT 96
[2017-04-05] MEDS ORDERED: CELECOXIB 50 MG PO SCH (21:00)
[2017-04-06] VITALS (7 sets, daily range): BP systolic 90–121; BP diastolic 54–75; PULSE 87–98; RESP 17–19; TEMP 96–98.9; O2SAT 92–97
[2017-04-06] MEDS: HYDROmorphone HCL PF 2 MG/ML VIAL IV PUSH PRN (00:45)
[2017-04-06] MEDS: CLINDAMYCIN INJ 900 MG in SODIUM CHLORIDE 0.9% INJ 100 ML IV SCH ×2 (01:58→08:54)
[2017-04-06] MEDS: HYDROmorphone HCL 2 MG TAB PO PRN ×2 (02:43→06:26)
[2017-04-06] MEDS: KETOROLAC TROMETHAMINE 30 MG/ML (IVP) VIAL IVP SCH ×4 (04:43→21:40)
[2017-04-06 08:39] LABS: HEMATOCRIT 26.1 % (35.0-46.0); REVIEW FLAG FINAL
[2017-04-06] MEDS: ESCITALOPRAM OXALATE 20 MG TAB PO SCH (08:50)
[2017-04-06] MEDS: FAMCICLOVIR 500 MG TAB PO SCH ×2 (08:51→21:39)
[2017-04-06] MEDS: MULTIVITAMIN TAB PO SCH (08:51)
[2017-04-06] MEDS: diphenhydrAMINE HCL 25 MG CAP PO PRN (08:51)
[2017-04-06] MEDS: PANTOPRAZOLE SOD 40 MG DELAYED RELEASE TAB PO SCH (08:51)
[2017-04-06] MEDS: SODIUM CHLORIDE 0.9% FLUSH 5 ML FLUSH IVF SCH ×2 (08:54→21:43)
--- NOTE | 2017-04-06 10:07 | PD.ORT.PN ---
Subjective Post Op Day #: 1 Subjective Remarks She is complaining about pain and itching, saying that she has dry skin. Nurses report that she is getting out of bed without nurses, walking without the walker. The drain came out last night. Range of Motion 0 to 103 degrees. Distance Walked 390 feet. Objective Vitals Vital Signs Date Time Temp Pulse Resp B/P (MAP) Pulse Ox O2 Delivery O2 Flow Rate FiO2 04/06/17 08:00 96.0 98 19 91/54 (66) 93 04/06/17 04:40 96.9 90 17 94/61 (72) 97 04/06/17 00:45 96.7 87 17 90/60 (70) 97 04/05/17 20:40 96.4 100 18 90/53 (65) 96 04/05/17 17:26 100 Nasal Cannula 3.00 04/05/17 16:00 96.6 88 19 85/52 (63) 98 04/05/17 14:15 96.2 73 18 100/71 (81) 93 04/05/17 13:45 97.8 58 15 149/93 (111) 100 Nasal Cannula 3 04/05/17 13:30 52 15 157/95 (115) 100 Nasal Cannula 3 04/05/17 13:15 50 15 157/99 (118) 100 Nasal Cannula 3 04/05/17 13:00 60 15 126/85 (99) 100 Nasal Cannula 3 04/05/17 12:40 96.0 59 15 125/71 (89) 100 Nasal Cannula 3 I/O 04/05/17 04/05/17 04/05/17 04/06/17 04/06/17 04/06/17 07:00 15:00 23:00 07:00 15:00 23:00 Intake Total 1200 ml 840 ml 706 ml Output Total 225 ml 100 ml 25 ml Balance 975 ml 740 ml 681 ml Intake Oral 840 ml 600 ml IV Total 1200 ml 106 ml Output Urine Total 0 ml Drainage Total 75 ml 100 ml 25 ml Estimated Blood Loss 150 ml # Voids 3 5 # Bowel Movements 0 0 Result Diagram: 04/06/1715 Imaging Last 72 hours Impressions Knee X-Ray 04/05/1728 Signed Impressions: Service Date/Time: Wednesday, April 05, 2017 13:01 - CONCLUSION: Status post total knee arthroplasty. Lei Delong MD Objective Remarks She is sitting on the edge of the bed with the dressing in disarray. The walker was in the bathroom. The neurovascular status is intact. Assessment & Plan Ortho Post Op Day #: 1 Problem List: (1) Status post total right knee replacement ICD Codes: Z96.651 - Presence of right artificial knee joint Plan: Continue postop care and PT. Assessment and Plan Condition: Good. Orthopaedically stable. DVT prophylaxis: ASA, sequentials, TEDs. Discharge plans: Home with [facility]. Has appointment. Change analgesic to Percocet. Advised patient of the possible dire consequences if she falls and strikes her knee. She says that she is doing the best that she can to be compliant. Claudia Sultana MD ([place]) Apr 06, 2017 10:07
[2017-04-06] MEDS ORDERED: oxyCODONE/ACETAMINOPHEN 5 MG/325 MG TAB PO PRN (11:00)
[2017-04-06] MEDS: LACTATED RINGER'S 1000 ML INJ 1,000 ML IV SCH (11:45)
[2017-04-06] MEDS: ASPIRIN EC 81 MG TABEC PO SCH ×2 (12:31→21:39)
[2017-04-06] MEDS: oxyCODONE/ACETAMINOPHEN 5 MG/325 MG TAB PO PRN ×3 (12:31→21:40)
--- NOTE | 2017-04-06 14:51 | HHI.PR ---
Subjective Remarks Follow-up knee surgery. States she got confused with Dilaudid. She can tolerate her cassette. Denies dizziness. Discussed with RN Objective Vitals Vital Signs Date Time Temp Pulse Resp B/P (MAP) Pulse Ox O2 Delivery O2 Flow Rate FiO2 04/06/17 12:10 92 21 04/06/17 12:00 97.5 96 18 101/59 (73) 92 04/06/17 08:00 96.0 98 19 91/54 (66) 93 04/06/17 04:40 96.9 90 17 94/61 (72) 97 04/06/17 00:45 96.7 87 17 90/60 (70) 97 04/05/17 20:40 96.4 100 18 90/53 (65) 96 04/05/17 17:26 100 Nasal Cannula 3.00 04/05/17 16:00 96.6 88 19 85/52 (63) 98 I/O 04/05/17 04/05/17 04/05/17 04/06/17 04/06/17 04/06/17 07:00 15:00 23:00 07:00 15:00 23:00 Intake Total 1200 ml 840 ml 706 ml Output Total 225 ml 100 ml 25 ml Balance 975 ml 740 ml 681 ml Intake Oral 840 ml 600 ml IV Total 1200 ml 106 ml Output Urine Total 0 ml Drainage Total 75 ml 100 ml 25 ml Estimated Blood Loss 150 ml # Voids 3 5 # Bowel Movements 0 0 Result Diagram: 04/06/17 08 Imaging Last Impressions Knee X-Ray 04/05/17927 Signed Impressions: Service Date/Time: Wednesday, April 05, 2017 13:01 - CONCLUSION: Status post total knee arthroplasty. Lei Delong MD Objective Remarks GENERAL: This is a well-nourished, well-developed patient, in no apparent distress. SKIN: No rashes, ecchymoses or lesions. Cool and dry. CARDIOVASCULAR: Regular rate and rhythm without murmurs, gallops, or rubs. RESPIRATORY: Clear to auscultation. Breath sounds equal bilaterally. No wheezes , rales, or rhonchi. GASTROINTESTINAL: Abdomen soft, non-tender, nondistended. No guarding. MUSCULOSKELETAL: Extremities without clubbing, cyanosis, or edema. Right lower extremity with thick dry dressing on a CPM NEUROLOGICAL: Lethargic but easily arousable. Cranial nerves II through XII intact. Motor and sensory grossly within normal limits. Five out of 5 muscle strength in all muscle groups. Normal speech. A/P Assessment and Plan This is a 57-year-old female with history of progressive right knee pain affecting her activities of daily living secondary to osteoarthritis. She underwent elective total knee arthroplasty by Dr. Sultana who requested consultation to evaluate and manage multiple medical conditions. Total knee arthroplasty. Stable continue postoperative care with wound care, physical therapy, DVT prophylaxis with aspirin and pain management with Percocet. She will also be on scheduled IV Toradol. History of pneumonia and bronchitis and was on albuterol inhaler. She has been doing well respiratory chase and last chest x-ray in December 2016 was unremarkable. Tolerating room air. Duodenitis on Protonix and denies GI symptoms. Continue PPI Genital herpes controlled on famvir, we'll continue Arthritis and chronic back pain managed by Celebrex, also continued Anxiety and depression stable on Lexapro and trazodone. Toxic encephalopathy. Discontinue IV Dilaudid. Neurochecks. Barry Ortiz MD Apr 06, 2017 14:51
[2017-04-06 16:33] LABS: HEMOGLOBIN A1a 1.5 %; HEMOGLOBIN A1b 1.6 %; HEMOGLOBIN Ao 84.4 %; HEMOGLOBIN LA1C 2.1 %
[2017-04-06] MEDS: DOCUSATE SODIUM 100 MG CAP PO SCH (21:39)
[2017-04-06] MEDS: traZODone HCL 100 MG TAB PO SCH (21:39)
[2017-04-07] MEDS: LACTATED RINGER'S 1000 ML INJ 1,000 ML IV SCH ×2 (00:15→12:45)
[2017-04-07 00:34] VITALS: BP 101/67; PULSE 87; RESP 18; TEMP 97.9; O2SAT 96
[2017-04-07] MEDS: oxyCODONE/ACETAMINOPHEN 5 MG/325 MG TAB PO PRN ×3 (01:55→09:40)
[2017-04-07 03:59] VITALS: BP 103/67; PULSE 74; RESP 18; TEMP 99.4; O2SAT 94
[2017-04-07] MEDS: KETOROLAC TROMETHAMINE 30 MG/ML (IVP) VIAL IVP SCH (05:38)
[2017-04-07 07:16] LABS: HEMATOCRIT 22.7 % (35.0-46.0); REVIEW FLAG FINAL
--- NOTE | 2017-04-07 07:27 | PD.ORT.PN ---
Subjective Post Op Day #: 2 Subjective Remarks She has less pain and minimal itching. She is doing well with walking and therapy. Range of Motion -8 to 102 degrees. Distance Walked 130 feet, then 10 feet. Objective Vitals Vital Signs Date Time Temp Pulse Resp B/P (MAP) Pulse Ox O2 Delivery O2 Flow Rate FiO2 04/07/17 03:59 99.4 74 18 103/67 (79) 94 04/07/17 00:34 97.9 87 18 101/67 (78) 96 04/06/17 19:30 98.3 90 18 121/74 (90) 94 04/06/17 16:00 98.9 92 18 102/75 (84) 93 04/06/17 12:10 92 21 04/06/17 12:00 97.5 96 18 101/59 (73) 92 04/06/17 08:00 96.0 98 19 91/54 (66) 93 I/O 04/06/17 04/06/17 04/06/17 04/07/17 04/07/17 04/07/17 07:00 15:00 23:00 07:00 15:00 23:00 Intake Total 706 ml 480 ml 480 ml 480 ml Output Total 25 ml Balance 681 ml 480 ml 480 ml 480 ml Intake Oral 600 ml 480 ml 480 ml 480 ml IV Total 106 ml Drainage Total 25 ml # Voids 5 2 4 6 # Bowel Movements 0 0 0 0 Result Diagram: 04/07/17 0625 Imaging Last 72 hours Impressions Knee X-Ray 04/05/17 0928 Signed Impressions: Service Date/Time: Wednesday, April 05, 2017 13:01 - CONCLUSION: Status post total knee arthroplasty. Lei Delong MD Objective Remarks She is resting comfortably, supine in bed in the CPM. The dressing is dry and intact. The neurovascular status is intact. Assessment & Plan Ortho Post Op Day #: 2 Problem List: (1) Status post total right knee replacement ICD Codes: Z96.651 - Presence of right artificial knee joint Plan: Continue postop care and PT. Assessment and Plan Condition: Good. Orthopaedically stable. DVT prophylaxis: ASA, sequentials, TEDs. Discharge plans: Home with [facility]. Has appointment. Rx: Percocet5/325. Claudia Sultana MD ([facility]) Apr 07, 2017 07:27
[2017-04-07] MEDS ORDERED: OXYC1TAB63 PO (07:52)
[2017-04-07 08:00] VITALS: BP 105/65; PULSE 72; RESP 18; TEMP 97.4; O2SAT 98
[2017-04-07] MEDS ORDERED: FERR325T20 PO (08:40)
[2017-04-07] MEDS ORDERED: DOCU1CAP39 PO (08:40)
[2017-04-07] MEDS ORDERED: FERROUS SULFATE 325 MG (65 MG ELEMENTAL IRON) TAB PO SCH (09:00)
[2017-04-07] MEDS: SODIUM CHLORIDE 0.9% FLUSH 5 ML FLUSH IVF SCH (09:00)
[2017-04-07] MEDS: DOCUSATE SODIUM 100 MG CAP PO SCH (09:00)
[2017-04-07] MEDS: ASPIRIN EC 81 MG TABEC PO SCH (09:24)
[2017-04-07] MEDS: MULTIVITAMIN TAB PO SCH (09:24)
[2017-04-07] MEDS: FAMCICLOVIR 500 MG TAB PO SCH (09:25)
[2017-04-07] MEDS: ESCITALOPRAM OXALATE 20 MG TAB PO SCH (09:25)
[2017-04-07] MEDS: PANTOPRAZOLE SOD 40 MG DELAYED RELEASE TAB PO SCH (09:25)
[2017-04-07 09:43] VITALS: O2SAT 96
--- NOTE | 2017-04-07 11:57 | HHI.PR ---
Subjective Remarks Follow-up anemia and hyperglycemia. Patient has no complaints ambulating in the hallway without dizziness or weakness. Agrees with iron Objective Vitals Vital Signs Date Time Temp Pulse Resp B/P (MAP) Pulse Ox O2 Delivery O2 Flow Rate FiO2 04/07/17 09:43 96 21 04/07/17 08:00 97.4 72 18 105/65 (78) 98 04/07/17 03:59 99.4 74 18 103/67 (79) 94 04/07/17 00:34 97.9 87 18 101/67 (78) 96 04/06/17 19:30 98.3 90 18 121/74 (90) 94 04/06/17 16:00 98.9 92 18 102/75 (84) 93 04/06/17 12:10 92 21 04/06/17 12:00 97.5 96 18 101/59 (73) 92 I/O 04/06/17 04/06/17 04/06/17 04/07/17 04/07/17 04/07/17 07:00 15:00 23:00 07:00 15:00 23:00 Intake Total 706 ml 480 ml 480 ml 480 ml Output Total 25 ml Balance 681 ml 480 ml 480 ml 480 ml Intake Oral 600 ml 480 ml 480 ml 480 ml IV Total 106 ml Drainage Total 25 ml # Voids 5 2 4 6 # Bowel Movements 0 0 0 0 Result Diagram: 04/07/17 0625 Objective Remarks GENERAL: This is a well-nourished, well-developed patient, in no apparent distress. SKIN: No rashes, ecchymoses or lesions. Cool and dry. CARDIOVASCULAR: Regular rate and rhythm without murmurs, gallops, or rubs. RESPIRATORY: Clear to auscultation. Breath sounds equal bilaterally. No wheezes , rales, or rhonchi. GASTROINTESTINAL: Abdomen soft, non-tender, nondistended. No guarding. MUSCULOSKELETAL: Extremities without clubbing, cyanosis, or edema. Right lower extremity with dry dressing on a CPM NEUROLOGICAL: Alert and oriented. Cranial nerves II through XII intact. Motor and sensory grossly within normal limits. Five out of 5 muscle strength in all muscle groups. Normal speech. A/P Assessment and Plan This is a 57-year-old female with history of progressive right knee pain affecting her activities of daily living secondary to osteoarthritis. She underwent elective total knee arthroplasty by Dr. Sultana who requested consultation to evaluate and manage multiple medical conditions. Total knee arthroplasty. Stable continue postoperative care with wound care, physical therapy, DVT prophylaxis with aspirin and pain management with Percocet. History of pneumonia and bronchitis and was on albuterol inhaler. She has been doing well respiratory chase and last chest x-ray in December 2016 was unremarkable. Tolerating room air. Duodenitis on Protonix and denies GI symptoms. Continue PPI Genital herpes controlled on famvir, we'll continue Arthritis and chronic back pain managed by Celebrex, also continued Anxiety and depression stable on Lexapro and trazodone. Toxic encephalopathy. Discontinued IV Dilaudid. Resolved Neurochecks. Anemia secondary to acute blood loss. Hemodynamically stable. Asymptomatic. Start iron with bowel regimen Hyperglycemia. A1c 6.2. Continue to monitor Discharge Planning Stable for discharge Barry Ortiz MD Apr 07, 2017 11:57
[2017-04-07 12:00] VITALS: BP 100/64; PULSE 73; RESP 18; TEMP 98.4; O2SAT 93
== END 2017-04-07 13:09 | disposition home health service (06) | DRG 469 ==
LOC: HSDI 08:01 → N06A 14:10
PROVIDERS: ADMIT Orthopaedic Surgery; ATTEND Orthopaedic Surgery
PROC: 3E0T3BZ Introduction of Anesthetic Agent into Peripheral Nerves and Plexi, Percutaneous Approach (ICD-10-PCS; 2017-04-05)
PROC: 0SRC0JA Replacement of Right Knee Joint with Synthetic Substitute, Uncemented, Open Approach (ICD-10-PCS; principal; 2017-04-05 10:02)
DX: M17.11 Unilateral primary osteoarthritis, right knee (principal); G92 Toxic encephalopathy; T40.2X5A Adverse effect of other opioids, initial encounter; M25.761 Osteophyte, right knee; M21.161 Varus deformity, not elsewhere classified, right knee; F41.9 Anxiety disorder, unspecified; F32.9 Major depressive disorder, single episode, unspecified; A60.00 Herpesviral infection of urogenital system, unspecified; M54.9 Dorsalgia, unspecified; G89.29 Other chronic pain; K29.80 Duodenitis without bleeding; Z87.01 Personal history of pneumonia (recurrent); Z98.82 Breast implant status
CPT/HCPCS: 73560; 83036; 85014; 85018; 86850; 86900; 86901; 94150; C9290; J0131; J1170; J1580; J1885; J2175; J7120